=== PATIENT | male | born 1995 | race African-American/Black ===

== ENCOUNTER 2017-10-29 09:04 | Emergency (ER) | payer OTHER ==
--- NOTE | 2017-10-29 09:21 | ER Document Report ---
ED Medical Screen (RME) - General Chief Complaint: Near Syncope Stated Complaint: NEAR SYNCOPAL EPISODE Time Seen by Provider: 10/29/17 09:20 Notes: 22-year-old male who was at work today when he felt "my heart going fast and I lost control". He states his arms tensed and he started to shake. He states he was awake for the entire incident. He did not fall. No trauma noted. Patient states he had a similar episode last week when he was taking some "exercise supplements". He denies any such supplements this week. He denies any chest pain, shortness of breath, nausea, vomiting, or fevers. TRAVEL OUTSIDE OF THE [place] IN LAST 30 DAYS: No - Related Data Allergies/Adverse Reactions: No Known Allergies Allergy (Verified 10/29/17 09:08) Physical Exam - Vital signs Vitals: Temp Pulse Resp BP Pulse Ox 98.1 F 76 20 159/79 H 97 10/29/17 09:11 10/29/17 09:11 10/29/17 09:11 10/29/17 09:11 10/29/17 09:11 Course - Vital Signs Vital signs: Temp Pulse Resp BP Pulse Ox 98.1 F 76 20 159/79 H 97 10/29/17 09:11 10/29/17 09:11 10/29/17 09:11 10/29/17 09:11 10/29/17 09:11
--- NOTE | 2017-10-29 10:08 | ER Document Report ---
ED Syncope and Near Syncope - General Chief Complaint: Near Syncope Stated Complaint: NEAR SYNCOPAL EPISODE Time Seen by Provider: 10/29/17 09:20 Mode of Arrival: Medic Information source: Patient, Emergency Med Personnel TRAVEL OUTSIDE OF THE [place] IN LAST 30 DAYS: No - HPI Patient complains to provider of: Nearly fainting Single episoded occurred: THIS AM When was most recent episode: JUST PRIOR TO E.D. Symptoms prior to episode: Palpitations, Racing heart. No: Chills, Fever, Nausea/vomiting, Short of breath, Sweaty Duration of preceeding symptoms: 30 SEC. 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 denies: Confused after event , Incontinent of stool, Incontinent of urine, Lost consciousness Injury location: None Current symptoms: None/feels back to normal Similar symptoms previously: Yes - ONCE, LAST WEEK Recently seen / treated by doctor: No - Related Data Allergies/Adverse Reactions: No Known Allergies Allergy (Verified 10/29/17 09:08) Past Medical History - General Information source: Patient - Social History Smoking Status: Never Smoker Cigarette use (# per day): No Chew tobacco use (# tins/day): No Frequency of alcohol use: None Drug Abuse: None Lives with: Parents Family History: Hypertension Patient has suicidal ideation: No Patient has homicidal ideation: No - Past Medical History Cardiac Medical History: Reports: None Pulmonary Medical History: Reports: None EENT Medical History: Reports: None Neurological Medical History: Reports: None Endocrine Medical History: Reports: None Renal/ Medical History: Reports: None. Denies: Hx Peritoneal Dialysis Malignancy Medical History: Reports None GI Medical History: Reports: None Musculoskeltal Medical History: Reports None Psychiatric Medical History: Reports: None Surgical Hx: Negative Review of Systems - Review of Systems Constitutional: No symptoms reported EENT: No symptoms reported Cardiovascular: See HPI Respiratory: No symptoms reported Gastrointestinal: No symptoms reported Genitourinary: No symptoms reported Musculoskeletal: No symptoms reported Skin: No symptoms reported Neurological/Psychological: No symptoms reported Physical Exam - Vital signs Vitals: Temp Pulse Resp BP Pulse Ox 98.1 F 76 20 159/79 H 97 10/29/17 09:11 10/29/17 09:11 10/29/17 09:11 10/29/17 09:11 10/29/17 09:11 Interpretation: Hypertensive. No: Tachycardic - WAS TACHYCARDIC ON INITIAL EVALUATION BY EMS - General General appearance: Appears well, Alert In distress: None - HEENT Head: Normocephalic Eyes: Normal Conjunctiva: Normal Ears: Normal Nasal: Normal Mouth/Lips: Normal Mucous membranes: Normal Pharynx: Normal Neck: Normal. No: Thyromegally - Respiratory Respiratory status: No respiratory distress Breath sounds: Normal - Cardiovascular Rhythm: Regular Heart sounds: Normal auscultation Murmur: No - Abdominal Inspection: Normal Distension: No distension Bowel sounds: Normal - Extremities General upper extremity: Normal inspection General lower extremity: Normal inspection - Neurological Neuro grossly intact: Yes Cognition: Normal Orientation: AAOx4 - Psychological Associated symptoms: Normal affect, Normal mood - Skin Skin Temperature: Warm Skin Moisture: Dry Skin Color: Normal Skin Turgor: Elastic Course - Re-evaluation Re-evalutation: 10/29/17 12:47 .Patient is asymptomatic. Blood pressure nearly normal. Laboratory values normal. Results of laboratory studies discussed with patient and family. Treatment plan discussed. Need for follow-up with primary care provider emphasized. - Vital Signs Vital signs: Temp Pulse Resp BP Pulse Ox 98.1 F 76 20 159/79 H 97 10/29/17 09:11 10/29/17 09:11 10/29/17 09:11 10/29/17 09:11 10/29/17 09:11 - Laboratory Result Diagrams: 10/29/17 10:15 10/29/17 10:15 Laboratory results interpreted by me: 10/29/17 10:15 Potassium 3.4 L Glucose 120 H Total Bilirubin 1.5 H - EKG Interpretation by Oh EKG shows normal: Sinus rhythm, [place], Intervals, QRS Complexes, ST-T Waves Rate: Normal Rhythm: NSR Discharge - Discharge Clinical Impression: Near syncope, Palpitations Hypertension Qualifiers: Hypertension type: essential hypertension Qualified Code(s): I10 - Essential ( primary) hypertension Condition: Stable Disposition: HOME, SELF-CARE Instructions: Calcium Channel Blockers ([facility]), High Blood Pressure ([facility]), Near Syncopal Episode ([facility]), Palpitations (Irregular or Rapid Heartrate) ([facility]) Additional Instructions: TAKE AMLODIPINE DIRECTED. AVOID CAFFEINATED BEVERAGES. SEE YOUR PRIMARY CARE PROVIDER FOR BLOOD PRESSURE FOLLOW-UP, MED REFILLS, ETC. RETURN TO E.R. IF PROBLEMS. Prescriptions: Amlodipine Besylate 5 mg PO DAILY #30 tab
[2017-10-29 10:16] LABS: URINE AMPHETAMINES SCREEN NEGATIVE; URINE BARBITURATES SCREEN NEGATIVE; URINE BENZODIAZEPINES SCREEN NEGATIVE; URINE COCAINE SCREEN NEGATIVE; URINE MARIJUANA (THC) SCREEN NEGATIVE; URINE METHADONE SCREEN NEGATIVE; URINE PHENCYCLIDINE SCREEN NEGATIVE
[2017-10-29 10:34] LABS: ABSOLUTE EOSINOPHILS # (AUTO) 0.1 10^3/uL (0.0-0.6); ABSOLUTE LYMPHOCYTES (AUTO) 1.4 10^3/uL (0.5-4.7); ABSOLUTE MONOCYTES (AUTO) 0.6 10^3/uL (0.1-1.4); ABSOLUTE NEUT (AUTO) 3.4 10^3/uL (1.7-8.2); BASOPHILS % (AUTO) 0.7 % (0-2); EOSINOPHILS % (AUTO) 1.5 % (0-6); HEMATOCRIT 42.9 % (37.9-51.0); HEMOGLOBIN 14.1 g/dL (13.5-17.0); LYMPHOCYTES % (AUTO) 25.1 % (13-45); MEAN CORPUSCULAR HEMOGLOBIN 27.7 pg (27.0-33.4); MEAN CORPUSCULAR HGB CONC 32.8 g/dL (32.0-36.0); MEAN CORPUSCULAR VOLUME 84 fl (80-97); MONOCYTES % (AUTO) 10.4 % (3-13); PLATELET COUNT 201 10^3/uL (150-450); RED BLOOD COUNT 5.09 10^6/uL (4.35-5.55); RED CELL DISTRIBUTION WIDTH 13.4 % (11.5-14.0); SEGMENTED NEUTROPHILS % (AUTO) 62.3 % (42-78); TOTAL CELLS COUNTED % (AUTO) 100 %; WHITE BLOOD COUNT 5.5 10^3/uL (4.0-10.5)
[2017-10-29 10:48] LABS: ALANINE AMINOTRANSFERASE 27 U/L (21-72); ALBUMIN 4.6 g/dL (3.5-5.0); ALKALINE PHOSPHATASE 65 U/L (38-126); ANION GAP 12 (5-19); ASPARTATE AMINO TRANSFERASE 18 U/L (17-59); BILIRUBIN,DIRECT 0.2 mg/dL (0.0-0.4); BILIRUBIN,TOTAL 1.5 mg/dL (0.2-1.3); BLOOD UREA NITROGEN 10 mg/dL (7-20); CARBON DIOXIDE 28 mmol/L (22-30); CHLORIDE 102 mmol/L (98-107); GLUCOSE 120 mg/dL (75-110); POTASSIUM 3.4 mmol/L (3.6-5.0); SODIUM 141.6 mmol/L (137-145); TOTAL PROTEIN 7.9 g/dL (6.3-8.2)
[2017-10-29] MEDS ORDERED: AMLODIPINE BESYLATE 5 MG TABLET PO ONE (11:21)
[2017-10-29 12:50] VITALS: BP 148/84
--- NOTE | 2017-10-30 12:42 | EKG REPORT ---
SEVERITY:- NORMAL ECG - SINUS RHYTHM : Confirmed by: Melissa Sky MD 30-Oct-2017 12:42:06
== END 2017-10-29 13:01 | disposition home or self-care (01) ==
LOC: EDBD → ER 09:04
DX: R55 Syncope and collapse (principal); R00.2 Palpitations; I10 Essential (primary) hypertension
CPT/HCPCS: 36415; 80053; 80307; 84443; 85025; 93005; 93010; 99284

== ENCOUNTER 2017-11-05 02:09 | Emergency (ER) | payer OTHER ==
[2017-11-05] MEDS ORDERED: MAG HYDROX/AL HYDROX/SIMETH SUSP 30 ML UDCUP PO ONE (02:41)
[2017-11-05] MEDS ORDERED: LIDOCAINE 2% VISCOUS SOLN 20 ML UDCUP PO ONE (02:41)
[2017-11-05] MEDS ORDERED: METOCLOPRAMIDE HCL ORAL SOLN 10 MG/10 ML UDCUP PO ONE (02:41)
--- NOTE | 2017-11-05 02:48 | ER Document Report ---
ED General - General Chief Complaint: Chest Pain Stated Complaint: CHEST PAIN Time Seen by Provider: 11/05/17 02:31 Notes: Patient is a 22-year-old male who comes emergency department for chief complaint of discomfort in his chest. He states that it felt sharp a few hours ago and he still feels strange in his chest. He denies specific pain. He denies shortness of breath. He states that he is also been belching frequently and he felt discomfort after eating earlier. He denies abdominal pain, nausea/ vomiting. He denies any daily medications. He denies smoking. He does admit to a stimulant which he took for a couple of days last week, he was seen for an episode of syncope a couple of days ago here which had an unremarkable workup. He was started on amlodipine but he only took one dose because his parents are taking his blood pressures and felt that they were normal and they were scared to give it to him. No recent travel, no lower extremity swelling, no family history of blood clots, early cardiac disease. Patient denies any recent cold symptoms or sick symptoms. TRAVEL OUTSIDE OF THE [place] IN LAST 30 DAYS: No - Related Data Allergies/Adverse Reactions: No Known Allergies Allergy (Verified 11/05/17 02:15) Past Medical History - General Information source: Patient - Social History Smoking Status: Never Smoker Frequency of alcohol use: None Drug Abuse: None Lives with: Family Family History: Hypertension - Medical History Medical History: Negative Renal/ Medical History: Denies: Hx Peritoneal Dialysis Surgical Hx: Negative - Immunizations Immunizations up to date: Yes Hx Diphtheria, Pertussis, Tetanus Vaccination: Yes Review of Systems - Review of Systems Constitutional: No symptoms reported EENT: No symptoms reported Cardiovascular: See HPI Respiratory: See HPI Gastrointestinal: See HPI Genitourinary: No symptoms reported Male Genitourinary: No symptoms reported Musculoskeletal: No symptoms reported Skin: No symptoms reported Hematologic/Lymphatic: No symptoms reported Neurological/Psychological: No symptoms reported Physical Exam - Vital signs Vitals: Temp Pulse Resp BP Pulse Ox 98.1 F 85 20 154/77 H 100 11/05/17 02:20 11/05/17 02:20 11/05/17 02:20 11/05/17 02:20 11/05/17 02:20 Interpretation: Normal - General General appearance: Alert, Anxious In distress: None - HEENT Head: Normocephalic, Atraumatic Eyes: Normal Conjunctiva: Normal Eyelashes: Normal Pupils: PERRL, Dilated - Respiratory Respiratory status: No respiratory distress Chest status: Nontender Breath sounds: Normal. No: Decreased air movement, Wheezing Chest palpation: Normal - Cardiovascular Rhythm: Regular. No: Irregularly irregular, Extrasystoles, Tachycardia Heart sounds: Normal auscultation, S1 appreciated, S2 appreciated Murmur: No Normal capillary refill: Yes - Abdominal Inspection: Normal Distension: No distension Bowel sounds: Normal Tenderness: Nontender Organomegaly: No organomegaly - Back Back: Normal, Nontender - Extremities General upper extremity: Normal inspection, Nontender, Normal color, Normal ROM , Normal temperature General lower extremity: Normal inspection, Nontender, Normal color, Normal ROM , Normal temperature, Normal weight bearing. No: Juan's sign - Neurological Neuro grossly intact: Yes Cognition: Normal Orientation: AAOx4 [place] Coma Scale Eye Opening: Spontaneous [place] Coma Scale Verbal: Oriented [place] Coma Scale Motor: Obeys Commands Jojo Coma Scale Total: 15 Speech: Normal Motor strength normal: LUE, RUE, LLE, RLE Sensory: Normal - Psychological Associated symptoms: Anxious - Skin Skin Temperature: Warm Skin Moisture: Dry Skin Color: Normal Course - Re-evaluation Re-evalutation: EKG shows sinus rhythm with no T-wave inversions in consecutive leads or ST segment changes. Mild T-wave depression in lead III but this is unchanged from prior. Normal MA interval with no significant depressions suggesting pericarditis. Machine reads as normal. Laboratory workup 2 days ago with unremarkable blood counts, chemistry, and negative urine drug screen. On reevaluation patient states that the sensation he had earlier was gone. Patient appears very anxious, dilated pupils, mildly hypertensive. Father is asking me if we can give him something to help him calm down. There does appear to be an anxiety component. I have very low suspicion of ACS, ulnar embolism, aortic dissection, no evidence of pneumothorax, no signs suggesting pericarditis or myocarditis. Discussed with patient more, he states that sometimes he feels like his heart is racing and he is going to pass out. Because of this cardiology referral will be placed, however patient states he felt the same way once while he was here and his monitoring while he was hooked up to the gambling monitor was normal. Discussed details with family and patient , they state understanding and agreement with plan of cardiology follow-up, Vistaril use for anxiety, and return for any worsening symptoms. - Vital Signs Vital signs: Temp Pulse Resp BP Pulse Ox 98.5 F 85 17 134/80 H 97 11/05/17 05:12 11/05/17 02:20 11/05/17 05:02 11/05/17 05:02 11/05/17 05:02 Discharge - Discharge Clinical Impression: Chest discomfort, Palpitations, Anxiety Condition: Stable Disposition: HOME, SELF-CARE Additional Instructions: Your EKG, chest x-ray, and monitoring tonight do not show any concerning abnormalities. The exact cause of your symptoms is uncertain. My recommendation is that you follow-up with the cardiology referral listed, consider Holter monitoring and additional evaluation. If you feel bad and cannot calm down I recommend taking the Vistaril, this can help you relax. It can also help you sleep. It is not an addictive or controlled substance. Return for any concerning symptoms including vomiting, fever, passing out again , difficulty breathing, or any other concerning symptoms. Prescriptions: Hydroxyzine Pamoate [Vistaril 25 mg Capsule] 1 - 2 cap PO Q6 PRN #30 capsule PRN Reason: Referrals: KATHY SAGE MD [ACTIVE STAFF] - Follow up in 3-5 days
[2017-11-05] MEDS ORDERED: HYDROXYZINE PAMOATE 25 MG CAPSULE PO ONE (04:15)
--- NOTE | 2017-11-05 04:55 | RADIOLOGY REPORT (SQ) ---
EXAM DESCRIPTION: CHEST PA/LAT CLINICAL HISTORY: 22 years, Male, chest discomfort COMPARISON: None. FINDINGS: Normal lung volume, clear parenchyma, normal cardiac silhouette, and intact bony thorax. IMPRESSION: No acute cardiopulmonary findings. 2011 [employer]- All Rights Reserved
[2017-11-05 05:14] VITALS: BP 134/80
--- NOTE | 2017-11-05 11:48 | EKG REPORT ---
SEVERITY:- NORMAL ECG - SINUS RHYTHM : Confirmed by: Sharlene Arenas 05-Nov-2017 11:47:28
== END 2017-11-05 05:14 | disposition home or self-care (01) ==
LOC: ER 02:09
DX: R07.9 Chest pain, unspecified (principal); R00.2 Palpitations; F41.9 Anxiety disorder, unspecified
CPT/HCPCS: 93005; 99285; 71046; 93010; J3490